=== PATIENT | male | born 1950 ===

== ENCOUNTER 2022-02-08 08:15 | Outpatient (CLI) | payer MEDICARE, OTHER, SELFPAY ==
--- NOTE | 2022-02-08 08:15 | RT.EKG_ITS ---
APPROVED REPORT Exam: Resting ECG Reason for Exam: a fib Patient Location: O HR:72 bpm ECG Measurements Heart Rate 72 AXIS NE 178 P 78 QRSd 119 QRS -15 QT 411 T -2 QTc 450 Conclusion Sinus rhythm...normal P axis, V-rate 50- 99 IRBBB and LPFB...RAD, QRSd>120, term axis(90,270)
== END 2022-02-08 08:16 | disposition home or self-care (01) ==
LOC: DI.CARD 08:16
PROVIDERS: PCP Internal Medicine; Visit Provider Internal Medicine Cardiovascular Disease
DX: I47.1 Supraventricular tachycardia (principal); I48.91 Unspecified atrial fibrillation; I48.92 Unspecified atrial flutter
CPT/HCPCS: 93010

== ENCOUNTER → 2022-02-08 11:21 | Outpatient (BNVA) | payer MEDICARE, OTHER, SELFPAY | PROVIDERS: PCP Internal Medicine; Referring Provider Internal Medicine; Visit Provider Internal Medicine Cardiovascular Disease | DX: I48.0 Paroxysmal atrial fibrillation (principal); Z95.818 Presence of other cardiac implants and grafts | CPT/HCPCS: 93005; 99203 ==

== ENCOUNTER → 2022-08-24 10:31 | Outpatient (BNVA) | payer MEDICARE, OTHER, SELFPAY | PROVIDERS: PCP Internal Medicine; Referring Provider Internal Medicine; Visit Provider Internal Medicine Cardiovascular Disease | DX: Z95.818 Presence of other cardiac implants and grafts (principal); I48.92 Unspecified atrial flutter | CPT/HCPCS: 99213 ==